=== PATIENT | male | born 1945 | race Caucasian/White ===

== ENCOUNTER 2020-12-20 07:21 | Emergency (ER) | payer OTHER | END 2020-12-20 08:26 | disposition home or self-care (01) | LOC: BURERS 07:21 | DX: S39.012A Strain of muscle, fascia and tendon of lower back, initial encounter (principal); G30.9 Alzheimer's disease, unspecified; F02.80 Dementia in other diseases classified elsewhere, unspecified severity, without behavioral disturbance, psychotic disturbance, mood disturbance, and anxiety; E11.9 Type 2 diabetes mellitus without complications; E78.00 Pure hypercholesterolemia, unspecified; K21.9 Gastro-esophageal reflux disease without esophagitis; I10 Essential (primary) hypertension; W19.XXXA Unspecified fall, initial encounter; Y92.129 Unspecified place in nursing home as the place of occurrence of the external cause | CPT/HCPCS: 72131 ==